=== PATIENT | male | born 1945 | race Caucasian/White ===

== ENCOUNTER → 2021-08-08 | Outpatient (RCR) | payer MEDICARE, OTHER ==
[~2021-08-08] MED LIST: ASPIRIN E.C. 8181 MG PO; GLUCOVANCE 5 MG1 TAB PO; LOPRESSOR 550 MG/TAB PO; PRINIVIL20 MG PO; VICTOZA6 MG/ML SC; ZOCOR 40MG40 MG PO
== END | disposition home or self-care (01) ==
LOC: COL.CR
DX: Z48.812 Encounter for surgical aftercare following surgery on the circulatory system (principal); Z95.2 Presence of prosthetic heart valve

== ENCOUNTER 2022-02-01 23:30 | Emergency (ER) | payer MEDICARE, OTHER ==
[~2022-02-01] VITALS: Ht 188 cm; Wt 100.0 kg
[2022-02-01 23:59] VITALS: TEMP 97.9
[2022-02-02 00:12] LABS: BASO % 0.5 % (0.0-2.0); EOS # 0.2 K/mm3 (0.0-0.7); EOS % 2.3 % (0.0-4.0); GRAN # 4.4 K/mm3 (1.4-6.5); GRAN % 54.5 % (42.2-75.2); HEMATOCRIT 42.8 % (42.0-52.0); HEMOGLOBIN 14.5 g/dl (13.5-18.0); LYMPH # 2.6 K/mm3 (1.2-3.4); LYMPH % 32.1 % (20.0-51.0); MEAN CELL VOLUME 85 fl (80.0-100.0); MEAN CORPUSCULAR HEMOGLOBIN 29 pg (27-31); MEAN CORPUSCULAR HGB CONC 34 g/dl (33.0-37.0); MONO # 0.8 K/mm3 (0.1-0.6); MONO % 10.2 % (1.7-9.3); PLATELET COUNT 192 K/mm3 (130-400); RED BLOOD COUNT 5.03 M/mm3 (4.20-5.60); REDCELL DISTRIBUTION WIDTH-CV 13.5 % (11.5-14.5)
[2022-02-02 00:29] LABS: ALANINE AMINOTRANSFERASE 17 U/L (0-55); ALBUMIN 4.1 gm/dL (3.4-4.8); ALKALINE PHOSPHATASE 82 U/L (40-150); ANION GAP 11 mmol/L (7-16); AST,SGOT 16 U/L (5-34); BILIRUBIN,TOTAL 0.8 mg/dL (0.2-1.2); BLOOD UREA NITROGEN 28 mg/dL (8-26); CALCIUM 9.6 mg/dL (8.4-10.2); CARBON DIOXIDE 22 mmol/L (23-31); CHLORIDE 106 mmol/L (98-107); CREATININE, serum 1.09 mg/dL (0.72-1.25); GLUCOSE 137 mg/dL (70-99); SODIUM 139 mmol/L (136-145); TOTAL PROTEIN 7.9 gm/dL (6.2-8.1)
[2022-02-02 00:40] LABS: TROPONIN-I < 0.010 ng/mL (0.00-0.033)
[2022-02-02 01:45] VITALS: BP 145/85; PULSE 85
== END 2022-02-02 01:48 | disposition home or self-care (01) ==
LOC: COL.ER 23:30
PROVIDERS: Physician Assistant
DX: R00.2 Palpitations (principal); I10 Essential (primary) hypertension; Z95.4 Presence of other heart-valve replacement; Z79.899 Other long term (current) drug therapy